=== PATIENT | female | born 1985 | race Caucasian/White ===

== ENCOUNTER 2016-05-15 17:58 | Emergency (ER) | payer OTHER ==
[2016-05-15 18:43] VITALS: BP 102/61
--- NOTE | 2016-05-15 18:49 | UC ---
Ear Complaint HPI - HPI Summary HPI Summary: complaint of bilateral ear pain that started on friday right more than left went to a loud show on friday and worse earpulgs nasal congestion denies cough, sore throat headaches took some ibuprofen last night witrh some relief - History of Current Complaint Chief Complaint: UC Stated Complaint: EAR ACHE Time Seen by Provider: 05/15/16 18:43 Hx Obtained From: Patient Hx Last Menstrual Period: 05/11/16 - Allergies/Home Medications Allergies/Adverse Reactions: Allergies Allergy/AdvReac Type Severity Reaction Status Date / Time No Known Allergies Allergy Verified 05/15/16 18:36 PMH/Surg Hx/FS Hx/Imm Hx Previously Healthy: Yes Endocrine History Of: Denies: Diabetes Cardiovascular History Of: Denies: Hypertension, Pacemaker/ICD GI/ History Of: Denies: Renal Disease - Surgical History Surgical History: Yes Surgery Procedure, Year, and Place: MOLE REMOVAL COLLAR BONE - Family History Known Family History: Negative: Cardiac Disease, Hypertension, Diabetes - Social History Occupation: Employed Full-time Lives: With Family Alcohol Use: Occasionally Substance Use Type: None Smoking Status (MU): Never Smoked Tobacco - Immunization History Most Recent Influenza Vaccination: fall 2015 Review of Systems Constitutional: Negative Skin: Negative Eyes: Negative ENT: Ear Ache, Nasal Discharge Respiratory: Negative Cardiovascular: Negative Gastrointestinal: Negative Genitourinary: Negative Motor: Negative Neurovascular: Negative Musculoskeletal: Negative Neurological: Negative Psychological: Negative All Other Systems Reviewed And Are Negative: Yes Physical Exam Triage Information Reviewed: Yes Appearance: No Pain Distress, Well-Nourished Vital Signs: Initial Vital Signs Temp 98.5 F 05/15/16 18:37 Pulse 77 05/15/16 18:37 Resp 16 05/15/16 18:37 BP 102/61 05/15/16 18:37 Pulse Ox 98 05/15/16 18:37 Vital Signs Reviewed: Yes Eyes: Positive: Conjunctiva Clear ENT: Positive: Pharynx normal, Nasal congestion, Nasal drainage, TM bulging. Negative: TM red Neck: Positive: No Lymphadenopathy Respiratory: Positive: Lungs clear, Normal breath sounds, No respiratory distress, No accessory muscle use Cardiovascular: Positive: RRR, No Murmur, Pulses Normal Abdomen Description: Positive: Nontender, Soft Bowel Sounds: Positive: Present Musculoskeletal: Positive: No Edema Neurological: Positive: Alert Psychological Exam: Normal Skin Exam: Normal Ear Complaint Course/Dx - Differential Dx/Diagnosis Differential Diagnosis/HQI/PQRI: Cerumen Impaction, Otitis Externa, Otitis Media , Other - eustachion tube dysfunction Provider Diagnoses: eustachion tube dysfunction Discharge - Discharge Plan Condition: Stable Disposition: HOME Prescriptions: Fluticasone NASAL SPRAY 50MCG* [Flonase NASAL SPRAY 50MCG*] 2 spray BOTH NARES DAILY #1 btl Patient Education Materials: Eustachian Tube Dysfunction (GEN) Referrals: No Primary Care Phys,NOPCP [Primary Care Provider] - [facility] [Outside] Additional Instructions: Start flonase as directed Increase fluids and rest Take acetaminophen or ibuprofen for fever or pain Please review your discharge instructions. If your symptoms do not improve please call your primary care provider or return to urgent care
== END 2016-05-15 18:55 | disposition home or self-care (01) ==
LOC: UCEAST 17:58
DX: H69.93 Unspecified Eustachian tube disorder, bilateral (principal); R09.81 Nasal congestion
CPT/HCPCS: 99212; G0463

== ENCOUNTER 2019-04-14 05:02 | Inpatient (IN) | payer BC ==
[2019-04-14] MEDS ORDERED: Buffered Lidocaine 1% SYRIN* 1 ML/SYRINGE INTRADERM ONE (06:31)
[2019-04-14] MEDS ORDERED: Lactated Ringers 1000 ML Bag* 1,000 ML IV ONE (06:31)
[2019-04-14] MEDS ORDERED: Morphine 10 MG/ML VIAL (1 ml) IM ONE (06:49)
[2019-04-14] MEDS ORDERED: Promethazine INJ(RESTRICTED)* 25 MG/ML 1 ML VIAL IM PRN (06:49)
[2019-04-14] MEDS ORDERED: Lactated Ringers 1000 ML Bag* 1,000 ML IV SCH (07:00)
[2019-04-14 07:20] LABS: Urine Benzodiazepine Screen None Detected (None Detect); Urine Opiates Screen None Detected (None Detect)
[2019-04-14] MEDS ORDERED: Morphine INJ* 4 MG/ML 1 ML SYRINGE (NEW SYRINGE VERSION) IM ONE (08:00)
--- NOTE | 2019-04-14 12:21 | HP ---
General Information - Reason for Visit Pt reports UCs starting last night around 2029, denies LOF. - General Information Maternal Age: 33 Grav: 1 Para: 0 SAB: 0 IEA: 0 Estimated Due Date: 04/10/19 Determined By: LMP Gestational Age in Weeks/Days: 40 4/7 Maternal Blood Type and Rh: O Positive - Results this Serology/RPR Result: Non-Reactive Rubella Result: Immune HBsAg Result: Negative HIV Result: Negative GBS Culture Result: Negative Past Medical History Delivery History: See Records - Primigravida Pertinent Past Medical History: See Records - basal cell carcinoma, eczema, back pain, anemia Pertinent Past Surgical History: See Records - excision of basal cell carcinoma Pertinent Family History: Non-Contributory - Antepartal Records Antepartal Records: Reviewed, Uncomplicated Review of Systems Constitutional: Comfortable CV Complaint: No Respiratory: Shortness of Breath: No Gastrointestinal: No Nausea/Vomiting Genitourinary: No Dysuria, No Bleeding, No Leaking Fluid Musculoskeletal: No Complaint, No Epigastric Pain Neurological: No Headache, No Visual Changes Movement: Normal Exam Allergies/Adverse Reactions: Allergies No Known Allergies Allergy (Verified 04/14/19 05:23) Vital Signs 04/14/19 08:02 Respiratory 20 Rate Lab Values - Entire Visit: Laboratory Tests 04/14/19 06:50 Urine Opiates Screen None detected Ur Barbiturates Screen None detected Ur Phencyclidine Scrn None detected Ur Amphetamines Screen None detected U Benzodiazepines Scrn None detected Urine Cocaine Screen None detected U Cannabinoids Screen None detected - Measurements Height: 5 ft 1 in Weight: 67.132 kg Weight in lbs: 148.847382 Body Mass Index (BMI): 27.9 Pre- Weight: 49.895 kg Weight Gained This : 38 lbs and 0 ozs - Exam Breast: Breast Exam Deferred CVA: No CVA Tenderness Extremities: No Edema Heart: Normal Rhythm/Heart Sounds HEENT: No Significant Findings Lungs: Clear Bilaterally Rectal: Rectal Exam Deferred Reflexes: DTR 2+ Thyroid: No Thyromegaly - Abdominal Exam Abdomen Exam: Non-Tender, Fundal Height Consistent with Dates - Ultrasound/Biophysical Profile Ultrasound Status: Not Done Targeted Exam Findings See L&D Outpatient Visit Provider Note for Findings: N/A Estimated Weight: 7.5# Presenting Part: Vertex Membrane Status: Intact Bleeding/Discharge: None - Cervical exam performed by Chris Bales CNM last night. Pt has declined cervical exam so far today. EFM Findings - External Monitor Findings Baseline Heart Rate: 150 External Monitor Findings: Accelerations Present, No Pattern of Variable or Late Decelerations, Variability Moderate, Baseline Stable Contractions: None, Mild, Moderate, 45-90 Seconds Assessment/Plan - Assessment Pt at term in early labor. No evidence of acidemia. Membranes intact. - Obstetrical Risk Factors Obstetrical Risk Factors: GBS Positive - Plan Plan: Admit - Anticipate Vaginal Delivery Plan Comment: Pt was given therapeutic rest last night. Currently coping well with ctx. Declines pain medication, declines cervical exam at this time. - Date/Time of Admission Date of Admission: 04/14/19 Time of Admission: 13:10
--- NOTE | 2019-04-14 16:22 | PN ---
Progress Note - Progress Note Date of Service: 04/14/19 SOAP: Subjective: Pt reports she feels UCs are becoming stronger. Coping well. Sleepy. Declines to permit cervical exam. at bedside. Objective: Pt declines cervical exam FHR: [id number]/ moderate variability/ + accels/ no decels UCs:3-4 minutes Pt with difficulty tolerating Chris's, but suspect OP position Assessment: Pt likely still in early labor. No evidence of acidemia or chorioamnionitis. Plan: Discussed options with pt. Advised that if she is still in early labor, may want to consider discharge home. Pt does not want to go home. Pt states she would like to ambulate in halls for a while and then will probably be willing to have cervical exam. Encouraged pt to try asymetric positions such as lunge on stool, as well as abdominal lifts to encourage engagement.
[2019-04-14 22:59] LABS: ABS Lymphocytes 1.3 10^3/ul (1.0-4.8); ABS Monocytes 0.8 10^3/ul (0-0.8); ABS Neutrophils 19.1 10^3/ul (1.5-7.7); Eosinophil % 0.1 %; Hematocrit 34 % (35-47); Hemoglobin 12.2 g/dL (12.0-16.0); Lymphocyte % 5.9 %; Mean Corpuscular HGB Conc 36 g/dL (31-36); Mean Corpuscular Hemoglobin 31 pg (27-31); Mean Corpuscular Volume 87 fL (80-97); Mean Platelet Volume 8.1 fL (7.4-10.4); Platelet Count 248 10^3/uL (150-450); Red Blood Count 3.95 10^6 /uL (3.70-4.87); Red Cell Distribution Width 13 % (10-15); White Blood Count 21.3 10^3/uL (3.5-10.8)
[2019-04-14] MEDS ORDERED: OBEPIDURAL* 250 ML EPIDURAL ONE (23:08)
--- NOTE | 2019-04-15 00:11 | PN ---
Progress Note - Progress Note Date of Service: 04/15/19 SOAP: Subjective: Pt comfortable with epidural. Tolerated procedure well. at bedside. Objective: FHR: Baseline 140/ moderate variability/ no accels/ no decels UCs: 2-3 minutes BP: 111/65 Assessment: Pt comfortable with epidural, appears to be in active labor. No evidence of acidemia or chorioamnionitis. Plan: Check cervix again when pt feels ready. Expectant management. Can consider Pitocin augmentation if needed.
[2019-04-15] MEDS ORDERED: Lactated Ringers 1000 ML Bag* 1,000 ML IV SCH ×2 (02:00→14:00)
[2019-04-15] MEDS ORDERED: Famotidine TAB* 20 MG PO PRN (02:00)
[2019-04-15] MEDS ORDERED: OBEPIDURAL* 250 ML EPIDURAL SCH (02:00)
[2019-04-15] MEDS ORDERED: Lactated Ringers 1000 ML Bag* 500 ML IV PRN ×2 (02:00)
[2019-04-15] MEDS ORDERED: Lactated Ringers 1000 ML Bag* 1,000 ML IV ONE (02:00)
[2019-04-15] MEDS ORDERED: Sodium Citrate/Citric Acid* 15 ML UDC PO PRN (02:00)
[2019-04-15] MEDS ORDERED: Phenylephrine 40 MCG/ML SYRINGE IV PUSH PRN ×2 (02:00)
--- NOTE | 2019-04-15 04:54 | PN ---
Progress Note - Progress Note Date of Service: 04/15/19 SOAP: Subjective: Pt remains comfortable with ctx. Slept for a while. and realtime court reporter at bedside. Objective: Cervix: 7-8 cm/ 100%/ 0 station FHR: Baseline 145/ moderate variability/ no accels/ no decels UCs: Q5 minutes Fluid:clear, some old blood present Temp:99.2, BP 115/63 Assessment: Pt continues to progress. UCs starting to space out a little bit. No evidence of acidemia. Plan: Discussed options of expectant management, vs. AROM, vs. Pitocin. After extensive discussion pt decided she would like to try AROM. AROM performed without difficulty. Will consider Pitocin augmentation if ctx continue to be spaced out.
[2019-04-15] MEDS ORDERED: Acetaminophen TAB* 325 MG PO ONE (07:55)
--- NOTE | 2019-04-15 08:31 | PN ---
Progress Note - Progress Note Date of Service: 04/15/19 Note: S: Assuming care of Julia a 33 year-old at 40-5/7 in active labor. She just received a bolus to her epidural from anesthesia and is hoping to rest for a bit until it's time to push. O: BP 114/64 HR 91 T 98.2 FHT 145bpm. Moderate variability. +Accels. Occasional early decels. UCs q 2.5-4 min. VE at 0707 per Barbara Chahal CNM 9cm/100%/vtx +1 A: IUP at 40-5/7 in active labor Cat II FHT - doubt metabolic acidemia P: Enc rest. Re-check in 1-2 hours or sooner PRN
--- NOTE | 2019-04-15 10:23 | PN ---
Progress Note - Progress Note Date of Service: 04/15/19 Note: S: Pt resting comfortably. Can feel UCs at the top of her abdomen but still able to rest. O: BP 125/75 HR 91 T 100 FHT 140bpm. Moderate variability. +Accels. Rare early type decels UCs q 4-7 VE 9.5/100%/vtx +1 A: IUP at 40-5/7 in labor No evidence of metabolic acidemia Low grade temperature P: Counseled for IV Pitocin to help get a regular UC pattern which will assist with pushing. PARQ IV pitocin. Pt and FOB consent. Close monitoring of maternal temperature. Anticipate trial of pushing soon
[2019-04-15] MEDS ORDERED: Oxytocin in LR* 20 UNITS/1,000 ML BAG IVPB SCH ×2 (11:00→14:00)
[2019-04-15] MEDS ORDERED: Ondansetron INJ* 2 MG/ML VIAL IV ONE (11:40)
[2019-04-15] MEDS ORDERED: Ondansetron INJ* 2 MG/ML VIAL ONE (11:41)
--- NOTE | 2019-04-15 12:17 | PN ---
Progress Note - Progress Note Date of Service: 04/15/19 Note: Quick Note: Pt with vomiting and increased pressure. IV Zofran given with good relief. Pt resting comfortably between UCs. Declines VE at this time. FHT 145. Minimal- moderate variability. +Accels. Rare early type decels. UCs q 2-6 min, coupling pattern. IV pitocin increased from 2 to 4 mu/min. Will continue to monitor. Anticipate trial of pushing soon.
[2019-04-15] MEDS ORDERED: Acetaminophen TAB* 325 MG PO PRN (13:51)
--- NOTE | 2019-04-15 13:57 | PROCNOTE ---
[facility]: Delivery Note - Delivery A Date of : 04/15/19 Time of : 12:57 [place] Sex: Male Score 1 Minute: 8 Score 5 Minutes: 9 Gestational Age in Weeks and Days at Delivery: 40 Weeks and 5 Days Delivery Method: Spontaneous Vaginal Labor: Spontaneous Did Patient attempt ?: N/A, No Previous Amniotic Fluid: Clear Estimated Blood Loss: 300 Anesthesia/Analgesia: CEI for Labor Delivered By: Chichi Scott - Nursery Level of Nursery: Regular/Bedside - Perineum Perineal Injury: 2nd Degree - repaired in the usual fashion with 3-0 Vicryl under local infiltration lidocaine and epidural analgesia. Anatomy restored. Good hemostasis achieved. Pt tolerated well Perineal Repair: By Delivering Practioner - Events Delivery Events of Note: Pitocin During Labor - Additional Delivery Notes Additional Delivery Notes: Pt admitted in labor with slow steady progress to complete. Length of active phase 12 hours, 41 min. Pushed x 23 min. liveborn male. Slow, controlled delivery of head. OA to TERESA. Compound delivery with posterior hand by face. Shoulders followed easily. vigorous with spontaneous cry. HR>110bpm. Delivered to maternal abdomen. Cord clamped x 2 and cut once pulsations ceased. Spontaneous delivery intact placenta. Membranes complete. Fundus firm to massage with IV pitocin infusing. Repair as above. EBL 300mL. At time of note mother and infant in stable condition. Planning to breast feed.
[2019-04-15] MEDS: Ibuprofen TAB* 600 MG PO SCH ×2 (15:57→21:57)
[2019-04-15] MEDS: Dibucaine 1% 28.35 GM TUBE PR PRN (15:57)
[2019-04-15] MEDS: Witch Hazel PAD* JAR TOPICAL PRN (15:57)
[2019-04-15] MEDS: Docusate CAP* 100 MG PO SCH ×2 (15:59→21:57)
[2019-04-15] MEDS ORDERED: Lidocaine 1% INJ* 10 MG/ML 30 ML SDV ONE (18:58)
[2019-04-16] MEDS: Ibuprofen TAB* 600 MG PO SCH ×4 (04:33→19:29)
[2019-04-16] MEDS: Docusate CAP* 100 MG PO SCH ×3 (08:01→21:59)
[2019-04-16 12:32] LABS: ABS Lymphocytes 2.1 10^3/ul (1.0-4.8); ABS Monocytes 1.2 10^3/ul (0-0.8); ABS Neutrophils 13.8 10^3/ul (1.5-7.7); Eosinophil % 0.3 %; Hematocrit 29 % (35-47); Hemoglobin 9.6 g/dL (12.0-16.0); Lymphocyte % 12.3 %; Mean Corpuscular HGB Conc 33 g/dL (31-36); Mean Corpuscular Hemoglobin 29 pg (27-31); Mean Corpuscular Volume 88 fL (80-97); Mean Platelet Volume 7.8 fL (7.4-10.4); Platelet Count 246 10^3/uL (150-450); Red Blood Count 3.26 10^6 /uL (3.70-4.87); Red Cell Distribution Width 13 % (10-15); White Blood Count 17.2 10^3/uL (3.5-10.8)
[2019-04-16] MEDS: Ferrous Gluconate TAB* 324 MG TAB PO SCH ×2 (13:31→22:53)
[2019-04-17] MEDS: Ibuprofen TAB* 600 MG PO SCH ×2 (02:27→08:00)
[2019-04-17] MEDS: Dibucaine 1% 28.35 GM TUBE PR PRN (08:00)
[2019-04-17] MEDS: Witch Hazel PAD* JAR TOPICAL PRN (08:00)
[2019-04-17] MEDS: Docusate CAP* 100 MG PO SCH (08:00)
[2019-04-17] MEDS: Ferrous Gluconate TAB* 324 MG TAB PO SCH (08:01)
[2019-04-17 08:12] VITALS: BP 129/66
== END 2019-04-17 15:05 | disposition home or self-care (01) | DRG 560 ==
LOC: MCHOBOUT 05:02 → MCHOB 06:37
PROVIDERS: ADMIT Midwife; ATTEND Midwife
PROC: 10E0XZZ Delivery of Products of Conception, External Approach (ICD-10-PCS; principal; 2019-04-15)
PROC: 10907ZC Drainage of Amniotic Fluid, Therapeutic from Products of Conception, Via Natural or Artificial Opening (ICD-10-PCS; 2019-04-15)
PROC: 4A1HXCZ Monitoring of Products of Conception, Cardiac Rate, External Approach (ICD-10-PCS; 2019-04-15)
PROC: 0KQM0ZZ Repair Perineum Muscle, Open Approach (ICD-10-PCS; 2019-04-15)
DX: O48.0 Post-term pregnancy (principal); Z37.0 Single live birth; O70.1 Second degree perineal laceration during delivery; O32.6XX0 Maternal care for compound presentation, not applicable or unspecified; O76 Abnormality in fetal heart rate and rhythm complicating labor and delivery; O90.81 Anemia of the puerperium; Z3A.40 40 weeks gestation of pregnancy; Z28.21 Immunization not carried out because of patient refusal; Z85.828 Personal history of other malignant neoplasm of skin
CPT/HCPCS: 36415; 80307; 85025; 86850; 86900; 86901; A9270-GY; G0480; J2270; J2405; J2550

== ENCOUNTER 2022-05-18 01:41 | Inpatient (IN) ==
[2022-05-18] MEDS ORDERED: Buffered Lidocaine 1% SYRIN 1 ml INTRADERM ONE (02:40)
[2022-05-18] MEDS ORDERED: Lactated Ringers 1000 ml BAG 1,000 ML IV ONE ×2 (02:40→04:35)
[2022-05-18] MEDS ORDERED: Nalbuphine 10 MG/ML 1 ML VIAL IV PRN (02:40)
[2022-05-18] MEDS ORDERED: Promethazine INJ(RESTRICTED) 25 MG/ML 1 ml VIAL IV PRN (02:40)
[2022-05-18] MEDS ORDERED: Buffered Lidocaine 1% SYRIN 1 ml ONE (02:58)
[2022-05-18] MEDS ORDERED: Lactated Ringers 1000 ml BAG 1,000 ML IV SCH ×3 (03:00→10:00)
[2022-05-18 03:21] LABS: ABS Eosinophils 0.1 10^3/ul (0-0.6); ABS Lymphocytes 1.9 10^3/ul (1.0-4.8); ABS Monocytes 0.8 10^3/ul (0-0.8); ABS Neutrophils 11.7 10^3/ul (1.5-7.7); Eosinophil % 0.9 %; Hematocrit 36 % (35-47); Hemoglobin 11.9 g/dL (12.0-16.0); Lymphocyte % 12.9 %; Mean Corpuscular HGB Conc 34 g/dL (31-36); Mean Corpuscular Hemoglobin 29 pg (27-31); Mean Corpuscular Volume 87 fL (80-97); Mean Platelet Volume 8.1 fL (7.4-10.4); Platelet Count 261 10^3/uL (150-450); Red Blood Count 4.08 10^6 /uL (3.70-4.87); Red Cell Distribution Width 13 % (10-15); White Blood Count 14.5 10^3/uL (3.5-10.8)
[2022-05-18] MEDS ORDERED: OBEPIDURAL (200 ML) 200 ML EPIDURAL ONE (03:29)
[2022-05-18 03:39] LABS: Urine Benzodiazepine Screen None Detected (None Detect); Urine Cannabinoids Screen None Detected (None Detect); Urine Opiates Screen None Detected (None Detect)
[2022-05-18] MEDS ORDERED: Lidocaine 1.5% EPI 1:200,000 30 ML SDV ONE (04:09)
[2022-05-18] MEDS ORDERED: Lidocaine 2% w/ EPI 1:200,000 MPF 20 ML SDV VIAL ONE (04:10)
[2022-05-18] MEDS ORDERED: Sodium Citrate/Citric Acid LIQ 15 ML UDC PO PRN (04:35)
[2022-05-18] MEDS ORDERED: Lactated Ringers 1000 ml BAG 500 ML IV PRN ×2 (04:35)
[2022-05-18] MEDS ORDERED: Phenylephrine 40 mcg/mL 10mL (400mcg) SYRINGE IV PUSH PRN ×2 (04:35)
[2022-05-18] MEDS ORDERED: OBEPIDURAL (200 ML) 200 ML EPIDURAL SCH (05:00)
[2022-05-18 06:12] LABS: Urine Appearance Clear; Urine Bilirubin Negative (Negative); Urine Blood Negative (Negative); Urine Color Yellow; Urine Glucose Negative (Negative); Urine Ketones Negative (Negative); Urine Nitrite Negative (Negative); Urine Protein Negative (Negative); Urine Specific Gravity 1.014 (1.002-1.030); Urine Urobilinogen Negative (Negative)
[2022-05-18] MEDS ORDERED: Oxytocin in LR 20,000 MILLI.UNIT/1,000 ML BAG IV ONE (08:20)
[2022-05-18] MEDS ORDERED: Dibucaine 1% OINT 28.35 GM TUBE PR PRN (09:17)
[2022-05-18] MEDS ORDERED: Witch Hazel PAD JAR TOPICAL PRN (09:17)
[2022-05-18] MEDS ORDERED: Oxytocin in LR 20,000 MILLI.UNIT/1,000 ML BAG IV SCH (09:30)
[2022-05-18] MEDS ORDERED: Lidocaine 1% VIAL 10 MG/ML VIAL 30 ML ONE (11:04)
[2022-05-19 08:11] VITALS: BP 92/55
[2022-05-19 10:21] LABS: ABS Basophils 0.1 10^3/ul (0-0.2); ABS Eosinophils 0.2 10^3/ul (0-0.6); ABS Lymphocytes 2.7 10^3/ul (1.0-4.8); ABS Monocytes 0.7 10^3/ul (0-0.8); ABS Neutrophils 11.6 10^3/ul (1.5-7.7); Eosinophil % 1.1 %; Hematocrit 32 % (35-47); Hemoglobin 10.5 g/dL (12.0-16.0); Lymphocyte % 17.8 %; Mean Corpuscular HGB Conc 33 g/dL (31-36); Mean Corpuscular Hemoglobin 29 pg (27-31); Mean Corpuscular Volume 87 fL (80-97); Mean Platelet Volume 7.6 fL (7.4-10.4); Platelet Count 233 10^3/uL (150-450); Red Blood Count 3.62 10^6 /uL (3.70-4.87); Red Cell Distribution Width 14 % (10-15); White Blood Count 15.3 10^3/uL (3.5-10.8)
== END 2022-05-19 15:02 | disposition home or self-care (01) | DRG 560 ==
LOC: MCHOBOUT 01:41 → MCHOB 02:01
PROVIDERS: ADMIT Advanced Practice Midwife; ATTEND Advanced Practice Midwife